=== PATIENT | male | born 1955 | race Caucasian/White ===

== ENCOUNTER 2017-02-25 15:15 | Inpatient (IN) | payer MEDICARE, MEDICAID ==
[~2017-02-25] VITALS: Ht 185.4 cm; Wt 85.7 kg
[2017-02-25 14:46] VITALS: BP 105/75
[~2017-02-25 15:15] MED LIST: BUSP10TA23 PO; DIPH25CA85 PO; FLUO40CA7 PO; HALOPERIDOL 5 MG TABLET PO PRN; LORazepam 2 MG TABLET PO PRN; OLAN10TA3 PO; OLAN15TA2 PO; TRIH5TAB2 PO; ZOLPIDEM TARTRATE 10 MG TABLET PO PRN
[2017-02-25] MEDS ORDERED: BusPIRone HCL 15 MG TABLET PO SCH (16:00)
[2017-02-25] MEDS ORDERED: BUSP15 PO (16:13)
[2017-02-25] MEDS ORDERED: AMAN100C12 PO ×2 (16:39)
[2017-02-25] MEDS ORDERED: OMEP20 PO (16:39)
[2017-02-25] MEDS ORDERED: DSS100 PO (16:39)
[2017-02-25] MEDS ORDERED: DIPH50 PO (16:41)
[2017-02-25] MEDS ORDERED: ALBU8HFA4 IH (16:41)
[2017-02-25] MEDS ORDERED: ALBU8.5H8 IH ×2 (16:41→16:42)
[2017-02-25] MEDS ORDERED: NITR.4 SL (16:42)
[2017-02-25] MEDS ORDERED: ACETAMINOPHEN 325 MG TABLET PO PRN (21:30)
[2017-02-25] MEDS ORDERED: NITROGLYCERIN 0.4 MG SUBLINGUAL TABLET #25 SL PRN (21:30)
[2017-02-25] MEDS ORDERED: ALBUTEROL SULFATE HFA 90 MCG/PUFF 8 GM INHALER IH PRN (21:30)
[2017-02-25 21:38] VITALS: BP 119/72
[2017-02-26] MEDS ORDERED: PNEUMOCOCCAL VACCINE POLYVALENT 0.5 ML VIAL [PPSV23] IM ONE (00:30)
[2017-02-26 06:53] VITALS: BP 132/72
[2017-02-26 08:10] LABS: BASOPHILS % (AUTO) 0.4 % (0.0-2.0); EOSINOPHILS % (AUTO) 0.5 % (1.0-6.0); HEMATOCRIT 38.4 % (41-53); HEMOGLOBIN 13.4 g/dL (13.5-17.5); LYMPHOCYTES # (AUTO) 0.7 K/uL (1.0-4.8); LYMPHOCYTES % (AUTO) 15.8 % (22.0-44.0); MEAN CORPUSCULAR HEMOGLOBIN 31.4 pg (26.0-34.0); MEAN CORPUSCULAR HGB CONC 34.8 G/dL (31.0-37.0); MEAN CORPUSCULAR VOLUME 90 fL (80-100); MONOCYTES % (AUTO) 22.1 % (2.0-9.0); NEUTROPHILS # (AUTO) 2.7 K/uL (1.8-7.7); NEUTROPHILS % (AUTO) 61.2 % (40.0-70.0); PLATELET COUNT (AUTO) 204 K/uL (150-450); RED BLOOD CELL COUNT(AUTO) 4.27 MIL/uL (4.50-5.90); RED CELL DISTRIBUTION WIDTH 13.1 % (11.5-14.5)
[2017-02-26] MEDS: DOCUSATE SODIUM 100 MG CAPSULE PO SCH ×2 (08:27→16:17)
[2017-02-26] MEDS: AMANTADINE HCL 100 MG CAPSULE PO SCH ×2 (08:27→16:17)
[2017-02-26] MEDS: OMEPRAZOLE 20 MG CAPSULE PO SCH (08:27)
[2017-02-26] MEDS: BusPIRone HCL 15 MG TABLET PO SCH ×2 (08:28→12:33)
[2017-02-26 08:33] LABS: ALANINE AMINOTRANSFERASE 28 U/L (12-78); ALBUMIN 3.5 g/dL (3.4-5.0); ALKALINE PHOSPHATASE 81 U/L (46-116); ANION GAP 7 mmol/L (8-16); ASPARTATE AMINOTRANSFERASE 25 U/L (15-37); BILIRUBIN,TOTAL 0.4 mg/dL (0.1-1.0); CALCIUM, TOTAL 8.7 mg/dL (8.8-10.5); CARBON DIOXIDE 27 mmol/L (22-29); CHLORIDE 97 mmol/L (98-107); CHOL/HDL RATIO 3.1 (4.2-7.3); CHOLESTEROL 163 mg/dL (131-200); CREATININE 0.93 mg/dL (0.60-1.30); FREE T4 (FREE THYROXINE) 1.14 ng/dL (0.76-1.46); GLOMERULAR FILTR. RATE CALC > 60 mL/min (>60); GLUCOSE,RANDOM 95 mg/dL (70-110); HDL CHOLESTEROL 52 mg/dL (40-60); LDL CHOL (CALC.) 101 mg/dL (0-130); POTASSIUM 4.2 mmol/L (3.5-5.1); SODIUM SERUM 131 mmol/L (136-145); TOTAL PROTEIN, SERUM 7.3 g/dL (6.4-8.2); TRIGLYCERIDES 51 mg/dL (15-150); UREA NITROGEN, BLOOD 18 mg/dL (7-18)
[2017-02-26 08:45] VITALS: BP 115/78
[2017-02-26 08:51] LABS: HEMOGLOBIN A1C 5.8 % (4.5-6.2)
[2017-02-26] MEDS ORDERED: FLUoxetine HCL 20 MG CAPSULE PO SCH (09:00)
[2017-02-26] MEDS: BusPIRone HCL 10 MG TABLET PO SCH (16:17)
[2017-02-26] MEDS: BENZTROPINE MESYLATE 1 MG TABLET PO SCH (16:17)
[2017-02-26 16:19] VITALS: BP 116/71
[2017-02-26] MEDS ORDERED: MAG HYDROX/AL HYDROX/SIMETH ES 30 ML SUSPENSION UDCUP PO PRN (19:30)
[2017-02-26] MEDS ORDERED: BACITRACIN 28.4 GM OINTMENT TP PRN (19:30)
[2017-02-26] MEDS ORDERED: LOPERAMIDE HCL 2 MG CAPSULE PO PRN (19:30)
[2017-02-26] MEDS ORDERED: BENZOCAINE/MENTHOL LOZENGE MM PRN (19:30)
[2017-02-26] MEDS ORDERED: MAGNESIUM HYDROXIDE SUSPENSION 30 ML UDCUP PO PRN (19:30)
[2017-02-26] MEDS ORDERED: CloNIDine HCL 0.1 MG TABLET PO PRN (19:30)
[2017-02-26] MEDS ORDERED: PETROLATUM,WHITE 71 GM JELLY TP PRN (19:30)
[2017-02-26] MEDS ORDERED: ONDANSETRON HCL 4 MG TABLET PO PRN (19:30)
[2017-02-26] MEDS ORDERED: IBUPROFEN 600 MG TABLET PO PRN (19:30)
[2017-02-26] MEDS: OLANZapine 7.5 MG TABLET PO SCH (20:11)
[2017-02-27 06:47] VITALS: BP 121/74
[2017-02-27 08:28] VITALS: BP 122/81
[2017-02-27] MEDS: OMEPRAZOLE 20 MG CAPSULE PO SCH (08:28)
[2017-02-27] MEDS: DOCUSATE SODIUM 100 MG CAPSULE PO SCH ×2 (08:28→16:44)
[2017-02-27] MEDS: BENZTROPINE MESYLATE 1 MG TABLET PO SCH ×2 (08:29→16:44)
[2017-02-27] MEDS: FLUoxetine HCL 20 MG CAPSULE PO SCH (08:29)
[2017-02-27] MEDS: BusPIRone HCL 10 MG TABLET PO SCH ×3 (08:29→16:44)
[2017-02-27] MEDS: AMANTADINE HCL 100 MG CAPSULE PO SCH ×2 (08:29→16:44)
[2017-02-27 09:18] LABS: CHOL/HDL RATIO 3.2 (4.2-7.3); THYROID STIMULATING HORMONE 0.92 uIU/mL (0.36-3.74)
[2017-02-27 18:02] VITALS: BP 115/73
[2017-02-27] MEDS: OLANZapine 7.5 MG TABLET PO SCH (20:51)
[2017-02-28 06:37] VITALS: BP 107/73
[2017-02-28] MEDS: OMEPRAZOLE 20 MG CAPSULE PO SCH (08:40)
[2017-02-28] MEDS: AMANTADINE HCL 100 MG CAPSULE PO SCH ×2 (08:40→16:42)
[2017-02-28] MEDS: DOCUSATE SODIUM 100 MG CAPSULE PO SCH ×2 (08:40→16:42)
[2017-02-28 08:41] VITALS: BP 102/72
[2017-02-28] MEDS: FLUoxetine HCL 20 MG CAPSULE PO SCH (08:41)
[2017-02-28] MEDS: BusPIRone HCL 10 MG TABLET PO SCH ×3 (08:41→16:42)
[2017-02-28] MEDS: BENZTROPINE MESYLATE 1 MG TABLET PO SCH ×2 (08:41→16:42)
[2017-02-28 16:22] VITALS: BP 105/69
[2017-02-28] MEDS: SODIUM CHLORIDE 1 GM TABLET PO SCH (20:09)
[2017-02-28] MEDS: OLANZapine 7.5 MG TABLET PO SCH (20:09)
[2017-03-01 06:27] VITALS: BP 109/68
[2017-03-01] MEDS: DOCUSATE SODIUM 100 MG CAPSULE PO SCH ×2 (08:24→16:33)
[2017-03-01] MEDS: AMANTADINE HCL 100 MG CAPSULE PO SCH ×2 (08:24→16:33)
[2017-03-01] MEDS: FLUoxetine HCL 20 MG CAPSULE PO SCH (08:24)
[2017-03-01] MEDS: BusPIRone HCL 10 MG TABLET PO SCH ×3 (08:24→16:33)
[2017-03-01] MEDS: OMEPRAZOLE 20 MG CAPSULE PO SCH (08:24)
[2017-03-01] MEDS: SODIUM CHLORIDE 1 GM TABLET PO SCH ×2 (08:24→16:49)
[2017-03-01] MEDS: BENZTROPINE MESYLATE 1 MG TABLET PO SCH ×2 (08:24→16:33)
[2017-03-01 08:46] VITALS: BP 103/60
[2017-03-01 16:00] VITALS: BP 122/63
[2017-03-01] MEDS: OLANZapine 7.5 MG TABLET PO SCH (20:29)
[2017-03-02 00:58] VITALS: BP 110/68
[2017-03-02] MEDS: MULTIVITAMINS WITH IRON TABLET PO SCH (07:10)
[2017-03-02 08:52] VITALS: BP 109/82
[2017-03-02] MEDS: BENZTROPINE MESYLATE 1 MG TABLET PO SCH ×2 (09:53→16:31)
[2017-03-02] MEDS: FLUoxetine HCL 20 MG CAPSULE PO SCH (09:53)
[2017-03-02] MEDS: BusPIRone HCL 10 MG TABLET PO SCH ×3 (09:53→16:30)
[2017-03-02] MEDS: OMEPRAZOLE 20 MG CAPSULE PO SCH (09:53)
[2017-03-02] MEDS: AMANTADINE HCL 100 MG CAPSULE PO SCH ×2 (09:54→16:31)
[2017-03-02] MEDS: DOCUSATE SODIUM 100 MG CAPSULE PO SCH ×2 (09:54→16:30)
[2017-03-02 16:25] VITALS: BP 102/69
[2017-03-02] MEDS: OLANZapine 7.5 MG TABLET PO SCH (20:36)
[2017-03-03 00:06] VITALS: BP 125/82
[2017-03-03] MEDS: MULTIVITAMINS WITH IRON TABLET PO SCH (06:40)
[2017-03-03 08:37] VITALS: BP 115/73
[2017-03-03] MEDS: AMANTADINE HCL 100 MG CAPSULE PO SCH ×2 (08:40→16:05)
[2017-03-03] MEDS: FLUoxetine HCL 20 MG CAPSULE PO SCH (08:40)
[2017-03-03] MEDS: BENZTROPINE MESYLATE 1 MG TABLET PO SCH ×2 (08:40→16:05)
[2017-03-03] MEDS: DOCUSATE SODIUM 100 MG CAPSULE PO SCH ×2 (08:40→16:06)
[2017-03-03] MEDS: OMEPRAZOLE 20 MG CAPSULE PO SCH (08:40)
[2017-03-03] MEDS: BusPIRone HCL 10 MG TABLET PO SCH ×3 (08:40→16:05)
[2017-03-03] MEDS ORDERED: BENZ1TAB10 PO (13:14)
[2017-03-03] MEDS ORDERED: OLAN5TAB2 PO (13:18)
[2017-03-03] MEDS ORDERED: OLAN10TA3 PO (13:18)
== END 2017-03-03 19:12 | disposition home or self-care (01) | DRG 885 ==
LOC: EDSTATUS 15:15 → B2X 20:27 → UNDOADMIN 22:30 → B2X 22:30 → B2S 03-01 08:06
PROVIDERS: ADMIT Psychiatry & Neurology Child & Adolescent Psychiatry; ATTEND Psychiatry & Neurology Child & Adolescent Psychiatry
DX: F20.0 Paranoid schizophrenia (principal); G20 Parkinson's disease; E87.1 Hypo-osmolality and hyponatremia; E83.51 Hypocalcemia; G25.9 Extrapyramidal and movement disorder, unspecified; Z91.19 Patient's noncompliance with other medical treatment and regimen; I25.10 Atherosclerotic heart disease of native coronary artery without angina pectoris; J44.9 Chronic obstructive pulmonary disease, unspecified; Z28.21 Immunization not carried out because of patient refusal; K21.9 Gastro-esophageal reflux disease without esophagitis; K59.00 Constipation, unspecified; S05.12XA Contusion of eyeball and orbital tissues, left eye, initial encounter; X58.XXXA Exposure to other specified factors, initial encounter; Y93.89 Activity, other specified; Y92.89 Other specified places as the place of occurrence of the external cause; Y99.8 Other external cause status; D64.9 Anemia, unspecified; Z72.89 Other problems related to lifestyle; Z71.41 Alcohol abuse counseling and surveillance of alcoholic; F15.90 Other stimulant use, unspecified, uncomplicated; Z79.899 Other long term (current) drug therapy
CPT/HCPCS: 82306; 83036; 84295; 84439; 84443

== ENCOUNTER 2017-02-25 15:32 | Emergency (ER) | payer MEDICARE, OTHER ==
[~2017-02-25] VITALS: Ht 185.4 cm; Wt 85.4 kg
[~2017-02-25 15:32] MED LIST changes: -HALOPERIDOL 5 MG TABLET PO PRN; -LORazepam 2 MG TABLET PO PRN; -ZOLPIDEM TARTRATE 10 MG TABLET PO PRN
[2017-02-25] MEDS ORDERED: BUSP15 PO (16:13)
[2017-02-25] MEDS ORDERED: ACETAMINOPHEN 500 MG TABLET PO ONE (16:30)
[2017-02-25] MEDS ORDERED: AMAN100C12 PO ×2 (16:39)
[2017-02-25] MEDS ORDERED: DSS100 PO (16:39)
[2017-02-25] MEDS ORDERED: OMEP20 PO (16:39)
[2017-02-25] MEDS ORDERED: ALBU8.5H8 IH ×2 (16:41→16:42)
[2017-02-25] MEDS ORDERED: DIPH50 PO (16:41)
[2017-02-25] MEDS ORDERED: ALBU8HFA4 IH (16:41)
[2017-02-25] MEDS ORDERED: NITR.4 SL (16:42)
[2017-02-25 17:13] LABS: BASOPHILS % (AUTO) 0.4 % (0.0-2.0); EOSINOPHILS % (AUTO) 0.1 % (1.0-6.0); HEMATOCRIT 39.5 % (41-53); HEMOGLOBIN 13.7 g/dL (13.5-17.5); LYMPHOCYTES # (AUTO) 0.7 K/uL (1.0-4.8); LYMPHOCYTES % (AUTO) 12.7 % (22.0-44.0); MEAN CORPUSCULAR HEMOGLOBIN 31.3 pg (26.0-34.0); MEAN CORPUSCULAR HGB CONC 34.6 G/dL (31.0-37.0); MEAN CORPUSCULAR VOLUME 90 fL (80-100); MONOCYTES % (AUTO) 18.1 % (2.0-9.0); NEUTROPHILS # (AUTO) 3.9 K/uL (1.8-7.7); NEUTROPHILS % (AUTO) 68.7 % (40.0-70.0); PLATELET COUNT (AUTO) 222 K/uL (150-450); RED BLOOD CELL COUNT(AUTO) 4.37 MIL/uL (4.50-5.90); RED CELL DISTRIBUTION WIDTH 13.2 % (11.5-14.5)
[2017-02-25 17:28] LABS: ANION GAP 9 mmol/L (8-16); CALCIUM, TOTAL 9.5 mg/dL (8.8-10.5); CARBON DIOXIDE 28 mmol/L (22-29); CHLORIDE 96 mmol/L (98-107); CREATININE 1.05 mg/dL (0.60-1.30); GLOMERULAR FILTR. RATE CALC > 60 mL/min (>60); GLUCOSE,RANDOM 104 mg/dL (70-110); POTASSIUM 5.8 mmol/L (3.5-5.1); SODIUM SERUM 133 mmol/L (136-145); UREA NITROGEN, BLOOD 18 mg/dL (7-18)
[2017-02-25 17:35] LABS: ALANINE AMINOTRANSFERASE 26 U/L (12-78); ALBUMIN 3.7 g/dL (3.4-5.0); ALKALINE PHOSPHATASE 84 U/L (46-116); ASPARTATE AMINOTRANSFERASE 24 U/L (15-37); BILIRUBIN,TOTAL 0.3 mg/dL (0.1-1.0); TOTAL PROTEIN, SERUM 7.5 g/dL (6.4-8.2)
[2017-02-25 18:26] VITALS: BP 122/82
== END 2017-02-25 19:46 | disposition home or self-care (01) ==
LOC: EMS 15:34
DX: S20.211A Contusion of right front wall of thorax, initial encounter (principal); S00.31XA Abrasion of nose, initial encounter; J44.9 Chronic obstructive pulmonary disease, unspecified; F17.210 Nicotine dependence, cigarettes, uncomplicated; F19.90 Other psychoactive substance use, unspecified, uncomplicated; Y04.2XXA Assault by strike against or bumped into by another person, initial encounter; Y93.89 Activity, other specified; Y92.89 Other specified places as the place of occurrence of the external cause; Y99.8 Other external cause status
CPT/HCPCS: 36415; 70450; 71010; 80053; 85025; 99285; G0480

== ENCOUNTER 2023-01-29 15:37 | Emergency (ER) | payer MEDICARE, OTHER ==
[~2023-01-29] VITALS: Ht 183.5 cm; Wt 86.4 kg
[~2023-01-29 15:37] MED LIST changes: +AMAN-24 PO; +BENZ1TAB84 PO; -BUSP10TA23 PO; +BUSP15 PO; -DIPH25CA85 PO; +DSS100 PO; -OLAN10TA3 PO; +OLAN10TA74 PO; -OLAN15TA2 PO; +OMEP20 PO; -TRIH5TAB2 PO
[2023-01-29] MEDS ORDERED: LORazepam 2 MG/ML VIAL IVP ONE (16:30)
[2023-01-29] MEDS ORDERED: SODIUM CHLORIDE 0.9% 1,000 ML IV ONE (16:30)
[2023-01-29 16:47] LABS: APPEARANCE,URINE HAZY (CLEAR); BILIRUBIN,URINE NEGATIVE (NEGATIVE); COLOR,URINE LIGHT YELLOW (YELLOW); GLUCOSE, URINE (UA) NEGATIVE (NEGATIVE); KETONES,URINE TRACE mg/dL (NEGATIVE); LEUKOCYTE ESTERASE ,URINE SMALL (NEGATIVE); NITRATE,URINE NEGATIVE (NEGATIVE); OCCULT BLOOD,URINE NEGATIVE (NEGATIVE); PH,URINE 6.5 (5.0-8.0); PH,URINE DRUG SCREEN 6.5 (5.0-8.0); PROTEIN,URINE NEGATIVE (NEGATIVE); SPECIFIC GRAVITIY, URINE 1.009 (1.003-1.030); UROBILINOGEN,URINE <=1.0 mg/dL (<=1.0)
[2023-01-29 16:55] LABS: AMPHET/METH SCREEN,URINE NEGATIVE (NEGATIVE); BARBITURATE SCREEN, URINE NEGATIVE (NEGATIVE); BENZODIAZEPINES SCREEN,URINE NEGATIVE (NEGATIVE); CANNABINOID SCREEN,URINE NEGATIVE (NEGATIVE); COCAINE SCREEN,URINE NEGATIVE (NEGATIVE); METHADONE SCREEN, URINE NEGATIVE (NEGATIVE); OPIATE SCREEN,URINE NEGATIVE (NEGATIVE); PHENCYCLIDINE SCREEN,URINE NEGATIVE (NEGATIVE)
[2023-01-29 16:57] LABS: BACTERIA,URINE None Seen /HPF (None Seen); RBC,URINE 0-2 /HPF (0-2); SQUAMOUS EPITHELIAL CELL,UR Few /LPF (None Seen)
[2023-01-29 16:59] LABS: ALCOHOL, URINE DRUG SCREEN NEGATIVE (NEGATIVE)
[2023-01-29 18:04] LABS: BASOPHILS % (AUTO) 0.6 % (0.0-2.0); EOSINOPHILS % (AUTO) 0.4 % (1.0-6.0); HEMATOCRIT 38.8 % (41-53); HEMOGLOBIN 13.6 g/dL (13.5-17.5); LYMPHOCYTES # (AUTO) 1.8 K/uL (1.0-4.8); LYMPHOCYTES % (AUTO) 20.3 % (22.0-44.0); MEAN CORPUSCULAR HEMOGLOBIN 32.1 pg (26.0-34.0); MEAN CORPUSCULAR HGB CONC 35.2 G/dL (31.0-37.0); MEAN CORPUSCULAR VOLUME 91 fL (80-100); MONOCYTES # (AUTO) 0.9 K/uL (0.1-1.0); MONOCYTES % (AUTO) 10.4 % (2.0-9.0); NEUTROPHILS # (AUTO) 6.1 K/uL (1.8-7.7); NEUTROPHILS % (AUTO) 68.3 % (40.0-70.0); PLATELET COUNT (AUTO) 309 K/uL (150-450); RED BLOOD CELL COUNT(AUTO) 4.25 MIL/uL (4.50-5.90); RED CELL DISTRIBUTION WIDTH 12.8 % (11.5-14.5); WHITE BLOOD COUNT (AUTO) 8.9 K/uL (4.5-11.0)
[2023-01-29 18:18] LABS: ANION GAP 11 mmol/L (8-16); CALCIUM, TOTAL 9.5 mg/dL (8.8-10.5); CARBON DIOXIDE 24 mmol/L (22-29); CHLORIDE 93 mmol/L (98-107); CREATININE 1.03 mg/dL (0.60-1.30); GLOMERULAR FILTR. RATE CALC > 60 mL/min (>60); GLUCOSE,RANDOM 100 mg/dL (70-110); POTASSIUM 3.9 mmol/L (3.5-5.1); SODIUM SERUM 128 mmol/L (136-145); UREA NITROGEN, BLOOD 10 mg/dL (7-18)
[2023-01-29 18:24] LABS: ALANINE AMINOTRANSFERASE 29 U/L (12-78); ALBUMIN 3.8 g/dL (3.4-5.0); ALKALINE PHOSPHATASE 74 U/L (46-116); ASPARTATE AMINOTRANSFERASE 36 U/L (15-37); BILIRUBIN,TOTAL 0.5 mg/dL (0.1-1.0); LIPASE 10 U/L (16-77); TOTAL PROTEIN, SERUM 7.8 g/dL (6.4-8.2)
[2023-01-29] MEDS ORDERED: BISMUTH SUBSALICYLATE 525 MG/30 ML SUSPENSION UDCUP PO ONE (18:45)
[2023-01-29] MEDS ORDERED: ONDANSETRON HCL 4 MG/2 ML VIAL IVP ONE (18:45)
[2023-01-29] MEDS ORDERED: OXYB-34 PO (19:15)
[2023-01-29 19:22] LABS: TROPONIN I-HIGH SENSITIVITY 10 ng/L (<76)
[2023-01-29 19:39] VITALS: BP 151/91; PULSE 110; RESP 14; TEMP 98.6
[2023-01-29] MEDS ORDERED: LORazepam 1 MG TABLET PO ONE (19:45)
== END 2023-01-29 23:50 | disposition home or self-care (01) ==
LOC: EMS 15:38
DX: F20.9 Schizophrenia, unspecified (principal); F17.210 Nicotine dependence, cigarettes, uncomplicated; R10.9 Unspecified abdominal pain; J44.9 Chronic obstructive pulmonary disease, unspecified; F15.90 Other stimulant use, unspecified, uncomplicated
CPT/HCPCS: 99284; 96374; 96361; 96375; 99406; 80053; 83690; 84484; 85025; 36415; 93005; 80307; 81001; J2060; J2405; J7030

== ENCOUNTER 2023-04-18 19:04 | Inpatient (IN) | payer MEDICARE, MEDICAID ==
[~2023-04-18] VITALS: Ht 185.4 cm; Wt 74.9 kg
[~2023-04-18 19:04] MED LIST changes: +OXYB-34 PO
[2023-04-18 20:34] LABS: BASOPHILS % (AUTO) 0.8 % (0.0-2.0); EOSINOPHILS % (AUTO) 1.8 % (1.0-6.0); HEMATOCRIT 36.9 % (41-53); HEMOGLOBIN 12.8 g/dL (13.5-17.5); LYMPHOCYTES % (AUTO) 27.2 % (22.0-44.0); MEAN CORPUSCULAR HEMOGLOBIN 32.1 pg (26.0-34.0); MEAN CORPUSCULAR HGB CONC 34.8 G/dL (31.0-37.0); MEAN CORPUSCULAR VOLUME 92 fL (80-100); MONOCYTES # (AUTO) 0.9 K/uL (0.1-1.0); MONOCYTES % (AUTO) 11.9 % (2.0-9.0); NEUTROPHILS # (AUTO) 4.2 K/uL (1.8-7.7); NEUTROPHILS % (AUTO) 58.3 % (40.0-70.0); PLATELET COUNT (AUTO) 270 K/uL (150-450); RED CELL DISTRIBUTION WIDTH 13.3 % (11.5-14.5); WHITE BLOOD COUNT (AUTO) 7.3 K/uL (4.5-11.0)
[2023-04-18 20:41] LABS: ANION GAP 6 mmol/L (8-16); CALCIUM, TOTAL 9.3 mg/dL (8.8-10.5); CARBON DIOXIDE 30 mmol/L (22-29); CHLORIDE 101 mmol/L (98-107); CREATININE 1.04 mg/dL (0.60-1.30); GLOMERULAR FILTR. RATE CALC > 60 mL/min (>60); GLUCOSE,RANDOM 107 mg/dL (70-110); POTASSIUM 4.1 mmol/L (3.5-5.1); SODIUM SERUM 137 mmol/L (136-145); UREA NITROGEN, BLOOD 22 mg/dL (7-18)
[2023-04-18 20:46] LABS: ALANINE AMINOTRANSFERASE 22 U/L (12-78); ALBUMIN 3.3 g/dL (3.4-5.0); ALKALINE PHOSPHATASE 94 U/L (46-116); ASPARTATE AMINOTRANSFERASE 21 U/L (15-37); BILIRUBIN,TOTAL 0.2 mg/dL (0.1-1.0); TOTAL PROTEIN, SERUM 6.3 g/dL (6.4-8.2)
[2023-04-18 20:52] LABS: ALCOHOL, BLOOD (SERUM) < 3 mg/dL (0-10)
[2023-04-18] MEDS: LORazepam 2 MG TABLET PO ONE (23:22)
[2023-04-19] MEDS ORDERED: HALOPERIDOL 5 MG TABLET PO PRN (00:15)
[2023-04-19 01:34] LABS: COVID AG,FIA SOURCE NASAL SWAB
[2023-04-19 01:43] LABS: SARS-COV2 (COVID) ANTIGEN,FIA Negative (Negative)
[2023-04-19] MEDS ORDERED: PNEUMOCOCCAL VACCINE POLYVALENT 0.5 ML SYRINGE [PPSV23] IM. ONE (05:15)
[2023-04-19 05:45] VITALS: BP 116/74; PULSE 73; RESP 18; TEMP 97
[2023-04-19 06:02] LABS: ALCOHOL, URINE DRUG SCREEN NEGATIVE (NEGATIVE); AMPHET/METH SCREEN,URINE NEGATIVE (NEGATIVE); APPEARANCE,URINE HAZY (CLEAR); BARBITURATE SCREEN, URINE NEGATIVE (NEGATIVE); BENZODIAZEPINES SCREEN,URINE NEGATIVE (NEGATIVE); BILIRUBIN,URINE NEGATIVE (NEGATIVE); CANNABINOID SCREEN,URINE NEGATIVE (NEGATIVE); COCAINE SCREEN,URINE NEGATIVE (NEGATIVE); COLOR,URINE YELLOW (YELLOW); GLUCOSE, URINE (UA) NEGATIVE (NEGATIVE); KETONES,URINE NEGATIVE (NEGATIVE); LEUKOCYTE ESTERASE ,URINE MODERATE (NEGATIVE); METHADONE SCREEN, URINE NEGATIVE (NEGATIVE); NITRATE,URINE NEGATIVE (NEGATIVE); OCCULT BLOOD,URINE NEGATIVE (NEGATIVE); OPIATE SCREEN,URINE NEGATIVE (NEGATIVE); PH,URINE 5.5 (5.0-8.0); PH,URINE DRUG SCREEN 5.5 (5.0-8.0); PHENCYCLIDINE SCREEN,URINE NEGATIVE (NEGATIVE); PROTEIN,URINE NEGATIVE (NEGATIVE); SPECIFIC GRAVITIY, URINE 1.016 (1.003-1.030); UROBILINOGEN,URINE <=1.0 mg/dL (<=1.0)
[2023-04-19 06:18] LABS: BACTERIA,URINE Many /HPF (None Seen); RBC,URINE 0-2 /HPF (0-2); SQUAMOUS EPITHELIAL CELL,UR Few /LPF (None Seen)
[2023-04-19] MEDS ORDERED: ACETAMINOPHEN 325 MG TABLET PO PRN (07:15)
[2023-04-19] MEDS ORDERED: DOCUSATE SODIUM 100 MG CAPSULE PO PRN (07:15)
[2023-04-19] MEDS ORDERED: LOPERAMIDE HCL 2 MG CAPSULE PO PRN (07:15)
[2023-04-19] MEDS ORDERED: ALBUTEROL SULFATE HFA 90 MCG/PUFF 8 GM INHALER IH PRN (07:15)
[2023-04-19] MEDS ORDERED: MAGNESIUM HYDROXIDE SUSPENSION 30 ML UDCUP PO PRN (07:15)
[2023-04-19] MEDS ORDERED: MAG HYDROX/ALUMINUM HYD/SIMETH ES 30 ML SUSPENSION UDCUP PO PRN (07:15)
[2023-04-19] MEDS ORDERED: PETROLATUM,WHITE 28 GM JELLY TP PRN (07:15)
[2023-04-19] MEDS ORDERED: CloNIDine HCL 0.1 MG TABLET PO PRN (07:15)
[2023-04-19] MEDS ORDERED: GuaiFENesin/D-METHORPHAN [SUGAR-FREE] 200-20MG/10 ML SYRUP UDCUP PO PRN (07:15)
[2023-04-19] MEDS ORDERED: ONDANSETRON HCL 4 MG TABLET PO PRN (07:15)
[2023-04-19] MEDS ORDERED: NICOTINE 14 MG/24 HOUR PATCH TD PRN (07:15)
[2023-04-19 09:00] VITALS: BP 118/70; PULSE 82; RESP 18; TEMP 97.5
[2023-04-19] MEDS: OXYBUTYNIN CHLORIDE 5 MG ER TABLET PO SCH (10:17)
[2023-04-19] MEDS: CEPHALEXIN MONOHYDRATE 250 MG CAPSULE PO SCH (10:17)
[2023-04-19] MEDS: OMEPRAZOLE 20 MG CAPSULE PO SCH (10:17)
[2023-04-19] MEDS: AMANTADINE HCL 100 MG CAPSULE PO SCH (10:18)
[2023-04-19] MEDS ORDERED: DOCU-385 PO (13:57)
[2023-04-19] MEDS: QUEtiapine FUMARATE 100 MG TABLET PO SCH (15:35)
[2023-04-19 21:28] VITALS: BP 128/76; PULSE 99; RESP 18; TEMP 97.9
[2023-04-19] MEDS: DiphenhydrAMINE HCL 25 MG CAPSULE PO SCH (21:36)
[2023-04-20 08:27] LABS: CHOL/HDL RATIO 2.9 (4.2-7.3); THYROID STIMULATING HORMONE 1.02 uIU/mL (0.36-3.74)
[2023-04-20 08:40] LABS: HEMOGLOBIN A1C 5.3 % (3.8-5.6)
[2023-04-20 10:29] VITALS: BP 110/75; PULSE 71; RESP 18; TEMP 97
[2023-04-20 21:35] VITALS: BP 105/65; PULSE 66; RESP 18; TEMP 97
[2023-04-20] MEDS: DiphenhydrAMINE HCL 50 MG CAPSULE PO SCH (21:47)
[2023-04-21 10:25] VITALS: BP 99/59; PULSE 79; RESP 18; TEMP 97.7
[2023-04-21 20:51] VITALS: BP 111/74; PULSE 79; RESP 18; TEMP 97.3
[2023-04-22 10:15] VITALS: BP 102/64; PULSE 69; RESP 16; TEMP 97.3
[2023-04-22 21:47] VITALS: BP 101/60; PULSE 76; RESP 18; TEMP 97.7
[2023-04-23 08:54] VITALS: BP 108/74; PULSE 82; RESP 18; TEMP 96.7
[2023-04-23 22:12] VITALS: BP 108/74; PULSE 82; RESP 16; TEMP 96.7
[2023-04-24 09:00] VITALS: BP 118/71; PULSE 68; RESP 18; TEMP 97.6
[2023-04-24 21:49] VITALS: BP 123/76; PULSE 72; RESP 18; TEMP 98.1
[2023-04-24] MEDS: ZOLPIDEM TARTRATE 10 MG TABLET PO PRN (22:06)
[2023-04-25 09:57] VITALS: BP 116/83; PULSE 83; RESP 16; TEMP 96.6
[2023-04-25] MEDS: QUEtiapine FUMARATE 200 MG TABLET PO SCH (21:09)
[2023-04-25 21:50] VITALS: BP 109/73; PULSE 95; RESP 18; TEMP 97.2
[2023-04-26 14:54] VITALS: BP 103/61; PULSE 89; RESP 17; TEMP 97.8
[2023-04-26 21:23] VITALS: RESP 18
[2023-04-27 11:06] VITALS: BP 96/54; PULSE 63; RESP 18; TEMP 96.8
[2023-04-27 20:30] VITALS: BP 114/67; PULSE 66; RESP 18; TEMP 97.5
[2023-04-28 10:23] VITALS: BP 111/55; PULSE 76; RESP 18; TEMP 97.5
[2023-04-28 21:07] VITALS: BP 105/81; PULSE 72; RESP 18; TEMP 98.1
[2023-04-29 09:02] VITALS: BP 122/62; PULSE 69; RESP 18; TEMP 98.1
[2023-04-29 21:24] VITALS: BP 112/71; PULSE 83; RESP 18; TEMP 98.1
[2023-04-30 11:55] VITALS: BP 107/62; PULSE 62; RESP 20; TEMP 97.3
[2023-04-30 21:17] VITALS: BP 119/63; PULSE 80; RESP 18; TEMP 97.4
[2023-05-01 09:33] VITALS: BP 130/72; PULSE 81; RESP 17; TEMP 98.1
[2023-05-01 20:49] VITALS: BP 102/65; PULSE 75; RESP 17; TEMP 97.7
[2023-05-01 21:40] VITALS: BP 110/78; PULSE 80; RESP 19; TEMP 97.9
[2023-05-01] MEDS: LORazepam 1 MG TABLET PO PRN (21:45)
[2023-05-01] MEDS: IBUPROFEN 400 MG TABLET PO PRN (21:45)
[2023-05-01 22:45] VITALS: RESP 18; TEMP 97.1
[2023-05-02 09:47] VITALS: BP 95/52; PULSE 84; RESP 17; TEMP 97.2
[2023-05-02 21:07] VITALS: BP 113/72; PULSE 83; RESP 18; TEMP 97.5
[2023-05-03 09:37] VITALS: BP 108/69; PULSE 100; RESP 18; TEMP 97.3
[2023-05-03 21:19] VITALS: BP 102/60; PULSE 66; RESP 18; TEMP 97.5
[2023-05-04 10:44] VITALS: BP 106/68; PULSE 78; RESP 18; TEMP 97.6
[2023-05-04 21:53] VITALS: BP 109/63; PULSE 78; RESP 18; TEMP 97.9
[2023-05-05 10:00] VITALS: BP 106/69; PULSE 88; RESP 17; TEMP 97.8
[2023-05-05] MEDS ORDERED: OXYB-34 PO (18:59)
[2023-05-05] MEDS ORDERED: QUET200T30 PO (18:59)
[2023-05-05] MEDS ORDERED: OMEP20 PO (18:59)
[2023-05-05] MEDS ORDERED: AMAN-24 PO (18:59)
== END 2023-05-05 19:19 | DRG 885 ==
LOC: EMS 19:06 → 3EX 04-19 00:46 → UNDOADMIN 04-19 00:46 → 3EX 04-19 00:47
PROVIDERS: ADMIT Psychiatry & Neurology Psychiatry; ATTEND Psychiatry & Neurology Psychiatry
PROC: GZHZZZZ Group Psychotherapy (ICD-10-PCS; principal; 2023-04-20)
PROC: GZ51ZZZ Individual Psychotherapy, Behavioral (ICD-10-PCS; 2023-04-20)
DX: F20.0 Paranoid schizophrenia (principal); K21.9 Gastro-esophageal reflux disease without esophagitis; J44.9 Chronic obstructive pulmonary disease, unspecified; G20.A1 Parkinson's disease without dyskinesia, without mention of fluctuations; N32.81 Overactive bladder; Z20.822 Contact with and (suspected) exposure to COVID-19; F19.10 Other psychoactive substance abuse, uncomplicated; G47.00 Insomnia, unspecified; R32 Unspecified urinary incontinence; Z79.899 Other long term (current) drug therapy; Z87.891 Personal history of nicotine dependence
CPT/HCPCS: 80053; 80061; 80307; 81001; 83036; 84443; 85025; 87081; 87086; 87186; 99285; G0378; G0480